=== PATIENT | male | born 1970 | race Caucasian/White ===

== ENCOUNTER 2017-06-12 18:44 | Emergency (ER) | payer OTHER ==
[2017-06-12] MEDS ORDERED: methylPREDNISolone SOD SUCCI 125 MG/2 ML VIAL IM ONE (21:13)
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
[2017-06-12 21:56] VITALS: BP 150/67; PULSE 78; RESP 18; TEMP 97.7
== END 2017-06-12 21:55 | disposition home or self-care (01) ==
LOC: EC 18:44
DX: F98.9 Unspecified behavioral and emotional disorders with onset usually occurring in childhood and adolescence (principal); R51 Headache; D86.89 Sarcoidosis of other sites; F41.9 Anxiety disorder, unspecified; F32.9 Major depressive disorder, single episode, unspecified; F17.200 Nicotine dependence, unspecified, uncomplicated; Z79.899 Other long term (current) drug therapy; Z88.8 Allergy status to other drugs, medicaments and biological substances
CPT/HCPCS: 99283; 96372; J2930

== ENCOUNTER 2018-01-20 06:48 | Emergency (ER) | payer MEDICARE, OTHER ==
[2018-01-20] MEDS ORDERED: SODIUM CHLORIDE 0.9% 500 ML IV STA (07:21)
[2018-01-20] MEDS ORDERED: SODIUM CHLORIDE 0.9% 1,000 ML IV STA (07:21)
[2018-01-20 07:39] LABS: Basophils % (A) 1 %; Eosinophils # (A) 0.2 k/uL (0-0.7); Eosinophils % (A) 2 %; HCT 47.2 % (39.0-53.0); HGB 15.6 gm/dL (13.0-17.5); Lymphocytes # (A) 2.2 k/uL (1.0-4.8); Lymphocytes % (A) 24 %; MCH 31.2 pg (25.0-35.0); MCV 94.5 fL (80.0-100.0); Mean Platelet Volume 7.6; Monocytes # (A) 0.4 k/uL (0-1.0); Monocytes % (A) 5 %; Neutrophils # (A) 6.2 k/uL (1.3-7.7); Neutrophils % (A) 68 %; Platelet Count 165 k/uL (150-450); RBC 4.99 m/uL (4.30-5.90); WBC 9.1 k/uL (3.8-10.6)
[2018-01-20 07:46] LABS: ALT 28 U/L (21-72); AST 18 U/L (17-59); Alkaline Phosphatase 85 U/L (38-126); Anion Gap 8 mmol/L; Blood Urea Nitrogen 8 mg/dL (9-20); Calcium 9.3 mg/dL (8.4-10.2); Carbon Dioxide 31 mmol/L (22-30); Chloride 103 mmol/L (98-107); Glucose 111 mg/dL (74-99); Magnesium 2.2 mg/dL (1.6-2.3); Partial Thromboplastin Time 23.6 sec (22.0-30.0); Phosphorus 3.7 mg/dL (2.5-4.5); Potassium 4.9 mmol/L (3.5-5.1); Prothrombin Time 9.7 sec (9.0-12.0); Sodium 142 mmol/L (137-145); Total Bilirubin 0.4 mg/dL (0.2-1.3); Total Protein 6.6 g/dL (6.3-8.2)
--- NOTE | 2018-01-20 08:02 | CT ---
EXAMINATION TYPE: CT brain wo con DATE OF EXAM: 01/20/2018 COMPARISON: Prior CT brain August 04, 2013. HISTORY: Lt sided numbness CT DLP: 1174 mGycm. Automated Exposure Control for Dose Reduction was Utilized. TECHNIQUE: CT scan of the head is performed without contrast. FINDINGS: There is no acute intracranial hemorrhage, mass effect, or midline shift identified. The ventricles and sulci are within normal limits in size. Mild mucosal thickening in visualized portion of maxillary sinuses is seen otherwise paranasal sinuses are clear. The globes are intact bilaterall y. IMPRESSION: No acute intracranial hemorrhage, mass effect, or midline shift is seen. No significant change from prior CT. If clinical concern for acute stroke persists further investigation with MRI st [facility] may be warranted.
[2018-01-20 08:04] LABS: Creatine Kinase 44 U/L (55-170)
[2018-01-20 08:17] LABS: Creatine Kinase MB <0.2 ng/mL (0.0-2.4); Troponin I <0.012 ng/mL (0.000-0.034)
[2018-01-20] MEDS ORDERED: DEXAMETHASONE SOD PHOSPHATE 10 MG/ML 1 ML VIAL IV STA (08:45)
[2018-01-20] MEDS ORDERED: KETOROLAC 30 MG/ML 1 ML VIAL IVP STA (09:21)
--- NOTE | 2018-01-20 09:21 | ED ---
General Adult HPI - General Chief complaint: Neuro Symptoms/Deficit Stated complaint: L side numbness Time Seen by Provider: 01/20/18 07:12 Source: patient, RN notes reviewed, old records reviewed Mode of arrival: ambulatory Limitations: no limitations - History of Present Illness Initial comments: This is a 47-year-old male the ER for evaluation. Patient presents today for evaluation regarding neurological deficit or complaint. Patient has history of neurosarcoidosis. Patient has not been on any recent steroid treatment. Patient has no head injury, patient does suffer from headaches and has current headache now. Patient states he's had some left-sided weakness as of recent, he also had possible seizure today. Patient states he was a little confused when he woke up. - Related Data Home Medications Medication Instructions Recorded Confirmed Baclofen [Lioresal] 20 mg PO QID 06/12/17 01/20/18 DULoxetine HCL [Cymbalta] 30 mg PO DAILY 06/12/17 01/20/18 DULoxetine HCL [Cymbalta] 60 mg PO HS 06/12/17 01/20/18 clonazePAM [KlonoPIN] 1 mg PO DAILY 06/12/17 01/20/18 Divalproex [Depakote] 500 mg PO BID 08/09/17 01/20/18 azaTHIOprine [Imuran] 50 mg PO BID 01/20/18 01/20/18 Allergies Allergy/AdvReac Type Severity Reaction Status Date / Time prednisone AdvReac Unknown Verified 01/20/18 08:21 Review of Systems ROS Statement: Those systems with pertinent positive or pertinent negative responses have been documented in the HPI. ROS Other: All systems not noted in ROS Statement are negative. Past Medical History Past Medical History: Hypertension, Neurologic Disorder Additional Past Medical History / Comment(s): dizziness, neuroscarcoidosis History of Any Multi-Drug Resistant Organisms: None Reported Past Surgical History: Orthopedic Surgery, Tonsillectomy Additional Past Surgical History / Comment(s): knee, shoulder, ankle, pelvic , elbow, clavicle Past Psychological History: Anxiety, Depression Smoking Status: Former smoker Past Alcohol Use History: None Reported Past Drug Use History: None Reported General Exam - General Exam Comments Initial Comments: Left leg weakness, left-sided numbness Limitations: no limitations General appearance: alert, in no apparent distress Head exam: Present: atraumatic, normocephalic, normal inspection Eye exam: Present: normal appearance, PERRL, EOMI. Absent: scleral icterus, conjunctival injection, periorbital swelling ENT exam: Present: normal exam, mucous membranes moist Neck exam: Present: normal inspection. Absent: tenderness, meningismus, lymphadenopathy Respiratory exam: Present: normal lung sounds bilaterally. Absent: respiratory distress, wheezes, rales, rhonchi, stridor Cardiovascular Exam: Present: regular rate, normal rhythm, normal heart sounds. Absent: systolic murmur, diastolic murmur, rubs, gallop, clicks GI/Abdominal exam: Present: soft, normal bowel sounds. Absent: distended, tenderness, guarding, rebound, rigid Extremities exam: Present: normal inspection, full ROM, normal capillary refill. Absent: tenderness, pedal edema, joint swelling, calf tenderness Back exam: Present: normal inspection Neurological exam: Present: alert, oriented X3, CN II-XII intact Psychiatric exam: Present: normal affect, normal mood Skin exam: Present: warm, dry, intact, normal color. Absent: rash Course Vital Signs 01/20/18 01/20/18 01/20/18 06:51 07:19 09:07 Temperature 98.2 F Pulse Rate 105 H 96 79 Respiratory 19 16 18 Rate Blood Pressure 141/78 149/83 132/84 O2 Sat by Pulse 99 97 98 Oximetry - Reevaluation(s) Reevaluation #1: 01/20/18 10:22 Patient spoke with at length, would like to be discharged after steroid infusion EKG Findings - EKG Comments: EKG Findings:: EKG shows normal sinus rhythm rate of 93, RI 146, QRS 84, QTC 417 Medical Decision Making - Medical Decision Making 47 male the ER for evaluation. Patient presents today for evaluation regards to neurological complaint, left-sided weakness. Left-sided tingling. Patient has history of neurosarcoidosis. Patient states symptoms began today when he woke up that are progressively worsened, he thinks he may have had a seizure. Taking all her medications as prescribed. Mild headache which is chronic, patient states he would like to be discharged home, given steroids here in the ER. - Lab Data Result diagrams: 01/20/18 07:07 01/20/18 07:07 Lab Results 01/20/18 01/20/18 01/20/18 Range/Units 07:07 07:07 07:07 WBC 9.1 (3.8-10.6) k/uL RBC 4.99 (4.30-5.90) m/uL Hgb 15.6 (13.0-17.5) gm/dL Hct 47.2 (39.0-53.0) % MCV 94.5 (80.0-100.0) fL MCH 31.2 (25.0-35.0) pg MCHC 33.0 (31.0-37.0) g/dL RDW 13.0 (11.5-15.5) % Plt Count 165 (150-450) k/uL Neutrophils % 68 % Lymphocytes % 24 % Monocytes % 5 % Eosinophils % 2 % Basophils % 1 % Neutrophils # 6.2 (1.3-7.7) k/uL Lymphocytes # 2.2 (1.0-4.8) k/uL Monocytes # 0.4 (0-1.0) k/uL Eosinophils # 0.2 (0-0.7) k/uL Basophils # 0.0 (0-0.2) k/uL PT (9.0-12.0) sec INR (<1.2) APTT (22.0-30.0) sec Sodium 142 (137-145) mmol/L Potassium 4.9 (3.5-5.1) mmol/L Chloride 103 (98-107) mmol/L Carbon Dioxide 31 H (22-30) mmol/L Anion Gap 8 mmol/L BUN 8 L (9-20) mg/dL Creatinine 0.89 (0.66-1.25) mg/dL Est GFR (MDRD) Af Amer >60 (>60 ml/min/1.73 sqM) Est GFR (MDRD) Non-Af >60 (>60 ml/min/1.73 sqM) Glucose 111 H (74-99) mg/dL Calcium 9.3 (8.4-10.2) mg/dL Phosphorus 3.7 (2.5-4.5) mg/dL Magnesium 2.2 (1.6-2.3) mg/dL Total Bilirubin 0.4 (0.2-1.3) mg/dL AST 18 (17-59) U/L ALT 28 (21-72) U/L Alkaline Phosphatase 85 (38-126) U/L Total Creatine Kinase 44 L (55-170) U/L CK-MB (CK-2) <0.2 (0.0-2.4) ng/mL CK-MB (CK-2) Rel Index Troponin I <0.012 (0.000-0.034) ng/mL Total Protein 6.6 (6.3-8.2) g/dL Albumin 4.0 (3.5-5.0) g/dL 01/20/18 Range/Units 07:07 WBC (3.8-10.6) k/uL RBC (4.30-5.90) m/uL Hgb (13.0-17.5) gm/dL Hct (39.0-53.0) % MCV (80.0-100.0) fL MCH (25.0-35.0) pg MCHC (31.0-37.0) g/dL RDW (11.5-15.5) % Plt Count (150-450) k/uL Neutrophils % % Lymphocytes % % Monocytes % % Eosinophils % % Basophils % % Neutrophils # (1.3-7.7) k/uL Lymphocytes # (1.0-4.8) k/uL Monocytes # (0-1.0) k/uL Eosinophils # (0-0.7) k/uL Basophils # (0-0.2) k/uL PT 9.7 (9.0-12.0) sec INR 1.0 (<1.2) APTT 23.6 (22.0-30.0) sec Sodium (137-145) mmol/L Potassium (3.5-5.1) mmol/L Chloride (98-107) mmol/L Carbon Dioxide (22-30) mmol/L Anion Gap mmol/L BUN (9-20) mg/dL Creatinine (0.66-1.25) mg/dL Est GFR (MDRD) Af Amer (>60 ml/min/1.73 sqM) Est GFR (MDRD) Non-Af (>60 ml/min/1.73 sqM) Glucose (74-99) mg/dL Calcium (8.4-10.2) mg/dL Phosphorus (2.5-4.5) mg/dL Magnesium (1.6-2.3) mg/dL Total Bilirubin (0.2-1.3) mg/dL AST (17-59) U/L ALT (21-72) U/L Alkaline Phosphatase (38-126) U/L Total Creatine Kinase (55-170) U/L CK-MB (CK-2) (0.0-2.4) ng/mL CK-MB (CK-2) Rel Index Troponin I (0.000-0.034) ng/mL Total Protein (6.3-8.2) g/dL Albumin (3.5-5.0) g/dL - Radiology Data Radiology results: report reviewed (CT brain negative for acute disease), image reviewed Disposition Clinical Impression: Weakness, Neurosarcoidosis Disposition: HOME SELF-CARE Condition: Good Instructions: Weakness (ED) Referrals: Nonstaff,Physician [Primary Care Provider] - 1-2 days
[2018-01-20] MEDS ORDERED: methylPREDNISolone SOD SUCCI 250 MG in SODIUM CHLORIDE 0.9% 100 ML IVPB STA (10:20)
[2018-01-20 11:20] VITALS: RESP 16
[2018-01-20 12:00] VITALS: BP 122/81; PULSE 83; TEMP 97.1
== END 2018-01-20 12:11 | disposition home or self-care (01) ==
LOC: EC 06:48
DX: D86.89 Sarcoidosis of other sites (principal); R53.1 Weakness; R51 Headache; I10 Essential (primary) hypertension; F32.9 Major depressive disorder, single episode, unspecified; F41.9 Anxiety disorder, unspecified; Z87.891 Personal history of nicotine dependence; Z79.899 Other long term (current) drug therapy; Z88.8 Allergy status to other drugs, medicaments and biological substances
CPT/HCPCS: 36415; 93005; 80164; 80053; 82550; 82553; 83735; 84100; 84484; 85025; 85610; 85730; 70450; 99285; 96365; 96375 ×2; 96361 ×3; J1100; J2930; J1885

== ENCOUNTER → 2021-06-20 | Outpatient (CLI) | payer MEDICARE | END | disposition home or self-care (01) | LOC: LABWHC1 09:52 | PROVIDERS: ATTEND Psychiatry & Neurology Neurology | DX: R00.0 Tachycardia, unspecified (principal) | CPT/HCPCS: 36415; 93005 ==

== ENCOUNTER → 2023-06-06 | Outpatient (CLI) | payer BC, MEDICARE ==
[2023-06-06 11:11] LABS: NT-Pro-B-Type Natriuretic Pept 524 pg/mL
[2023-06-06 16:09] LABS: Chol/HDL Ratio 6.43 Ratio; LDL Cholesterol,Calculated 125.9 mg/dL (0.0-131.0)
== END | disposition home or self-care (01) ==
LOC: LABWHC1 10:02
PROVIDERS: ATTEND Internal Medicine
DX: Z01.812 Encounter for preprocedural laboratory examination (principal); E78.5 Hyperlipidemia, unspecified
CPT/HCPCS: 36415; 80061; 83880

== ENCOUNTER 2023-11-06 11:35 | Observation (INO) | payer BC, MEDICARE ==
[2023-11-06] MEDS ORDERED: DILTIAZEM DRIP BOLUS FROM BAG 1 MG SOLN IV ONE (12:07)
[2023-11-06] MEDS ORDERED: ASPIRIN 81 MG PO STA (12:07)
--- NOTE | 2023-11-06 12:12 | ED ---
General Adult HPI - General Chief complaint: Arrhythmia/Palpitations Stated complaint: Palpitations Time Seen by Provider: 11/06/23 11:45 Source: patient, RN notes reviewed Mode of arrival: ambulatory Limitations: no limitations - History of Present Illness Initial comments: Patient is a pleasant 53-year-old male presenting to the emergency department w ith concerns for palpitations. Onset of symptoms was around 7:30 this morning. Patient had mild chest discomfort briefly last night. Patient had chest discomfort this morning with associated sweating and dyspnea. Patient has palpitations now. Chest discomfort described as tightness. Just mild at this time. Patient does have previous cardiac stenting however unclear if he had previous myocardial infarction. No history of dysrhythmia. - Related Data Home Medications Medication Instructions Recorded Confirmed clonazePAM [KlonoPIN] 1 mg PO Q12H 06/12/17 06/08/23 Divalproex [Depakote] 500 mg PO BID 08/09/17 06/08/23 azaTHIOprine [Imuran] 50 mg PO BID 05/11/23 06/08/23 Aspirin 81 mg PO DAILY 06/06/23 06/08/23 Previous Rx's Medication Instructions Recorded Atorvastatin [Lipitor] 40 mg PO HS #90 tab 06/10/23 Losartan [Cozaar] 50 mg PO DAILY #90 tab 06/10/23 Metoprolol Succinate (ER) [Toprol 50 mg PO DAILY #90 tab 06/10/23 XL] Ticagrelor [Brilinta] 90 mg PO BID #180 tab 06/10/23 Allergies Allergy/AdvReac Type Severity Reaction Status Date / Time prednisone AdvReac makes him Verified 11/06/23 11:40 irritable Review of Systems ROS Statement: Those systems with pertinent positive or pertinent negative responses have been documented in the HPI. ROS Other: All systems not noted in ROS Statement are negative. Constitutional: Denies: fever Eyes: Denies: eye pain ENT: Denies: ear pain Respiratory: Reports: as per HPI. Denies: cough Cardiovascular: Reports: as per HPI, chest pain, palpitations Endocrine: Denies: fatigue Gastrointestinal: Denies: abdominal pain Genitourinary: Denies: dysuria Past Medical History Past Medical History: Chest Pain / Angina, Eye Disorder, GERD/Reflux, Hyperlipidemia, Hypertension, Neurologic Disorder, Seizure Disorder Additional Past Medical History / Comment(s): dizziness, neurosarcoidosis, LAST MAJOR SEIZURE 4-5 YEARS- THINKS HE MIGHT HAVE SEIZURES WHEN HE IS SLEEPING-NOT SURE, small seizures, muscle spasticity, fluid retention left ankle, heartburn "goes into arms", chest tightness, some SOB w/exertion recently History of Any Multi-Drug Resistant Organisms: None Reported Past Surgical History: Orthopedic Surgery, Tonsillectomy Additional Past Surgical History / Comment(s): BILAT knee, BILAT shoulder, BILAT ankle, pelvic , LT elbow,LT clavicle, BILAT HAND SX, BLAT EYE SX , LASER SURGERY FOR BILAT DETACHED RETINAS Past Anesthesia/Blood Transfusion Reactions: No Reported Reaction Past Psychological History: Anxiety, Depression Smoking Status: Former smoker Past Alcohol Use History: None Reported Past Drug Use History: None Reported - Past Family History Mother History Unknown: Yes Family Medical History: No Reported History Additional Family Medical History / Comment(s): ADOPTED-FAMILY HX UNKNOWN Father Additional Family Medical History / Comment(s): ADOPTED-FAMILY HX UNKNOWN General Exam Limitations: no limitations General appearance: alert Eye exam: Present: normal appearance Neck exam: Present: normal inspection Respiratory exam: Present: normal lung sounds bilaterally Cardiovascular Exam: Present: tachycardia, irregular rhythm, normal heart sounds Expanded Peripheral pulses: 2+: Radial (R), Radial (L), Posterior Tibialis (R), Posterior Tibialis (L) GI/Abdominal exam: Present: soft. Absent: tenderness Extremities exam: Present: normal inspection. Absent: pedal edema, calf tenderness Neurological exam: Present: alert Psychiatric exam: Present: normal affect, normal mood Skin exam: Present: normal color Course Vital Signs 11/06/23 11/06/23 11/06/23 11:38 12:00 12:12 Temperature 98.4 F Pulse Rate 71 126 H Pulse Rate [ 152 H Computer Typesetter Keyliner ] Respiratory 22 18 Rate Blood Pressure 137/91 132/109 O2 Sat by Pulse 100 97 Oximetry 11/06/23 11/06/23 12:30 13:13 Temperature Pulse Rate 125 H 120 H Pulse Rate [ Computer Typesetter Keyliner ] Respiratory 18 18 Rate Blood Pressure 122/81 131/70 O2 Sat by Pulse 95 98 Oximetry EKG Findings - EKG Results: EKG: interpreted by ERMD (Lateral ST depression.), normal axis, normal QRS EKG shows: tachycardia, atrial fibrillation Medical Decision Making - Medical Decision Making Was pt. sent in by a medical professional or institution (TOMMIE Campbell, POLICE DISTRICT SWITCHBOARD OPERATOR, urgent care, hospital, or group home...) When possible be specific @ -[No] Did you speak to anyone other than the patient for history (EMS, parent, family, police, friend...)? What history was obtained from this source @ - is present and helps provide history including patient having similar symptoms previously and history of anxiety. Did you review nursing and triage notes (agree or disagree)? Why? @ -[I reviewed and agree with nursing and triage notes] Were old charts reviewed (outside hosp., previous admission, EMS record, old EKG, old radiological studies, urgent care reports/EKG's, group home records)? Report findings @ -[No old charts were reviewed] Differential Diagnosis (chest pain, altered mental status, abdominal pain women, abdominal pain men, vaginal bleeding, weakness, fever, dyspnea, syncope, headache, dizziness, GI bleed, back pain, seizure, CVA, palpatations, mental health, musculoskeletal)? @ -Differential Palpitations Ventricular arrhythmias, atrial arrhythmias, myocardial infarction, anemia, thyrotoxicosis, electrolyte imbalance, hypokalemia, pulmonary embolism, pulmonary disease, drugs, alcohol, anxiety, stress.... This is not meant to be an all-inclusive list. EKG interpreted by me (3pts min.). @ -[As above] X-rays interpreted by me (1pt min.). @ -Chest x-ray shows no acute process CT interpreted by me (1pt min.). @ -[None done] U/S interpreted by me (1pt. min.). @ -[None done] What testing was considered but not performed or refused? (CT, X-rays, U/S, labs)? Why? @ -[None] What meds were considered but not given or refused? Why? @ -[None] Did you discuss the management of the patient with other professionals (professionals i.e. TOMMIE Campbell, POLICE DISTRICT SWITCHBOARD OPERATOR, lab, RT, psych nurse, health care social worker, commissioner conservation of resources, teacher, benefits officer, casework supervisor)? Give summary @ -Case discussed with Dr. Pichardo, who will admit For Dr. Fullert Was smoking cessation discussed for >3mins.? @ -[No] Was critical care preformed (if so, how long)? @ -31 minutes of critical care time is provided Were there social determinants of health that impacted care today? How? (Homeles sness, low income, unemployed, alcoholism, drug addiction, transportation, low edu. Level, literacy, decrease access to med. care, [facility], rehab)? @ -[No] Was there de-escalation of care discussed even if they declined (Discuss DNR or withdrawal of care, Hospice)? DNR status @ -[No] What co-morbidities impacted this encounter? (DM, HTN, Smoking, COPD, CAD, Cancer, CVA, ARF, Chemo, Hep., AIDS, mental health diagnosis, sleep apnea, morbid obesity)? @ -[None] Was patient admitted / discharged? Hospital course, mention meds given and route, prescriptions, significant lab abnormalities, going to OR and other pertinent info. @ -Patient reevaluated. Heart rate has improved between 100-120 . Patient is feeling better. Patient and family updated on results and plan. Patient will be admitted with cardiac consult. Admission orders written. Undiagnosed new problem with uncertain prognosis? @ -[No] Drug Therapy requiring intensive monitoring for toxicity (Heparin, Nitro, Insulin, Cardizem)? @ -Patient will need monitoring on his Cardizem drip. Patient will be started on heparin drip. Were any procedures done? @ -[No] Diagnosis/symptom? @ -A. fib with RVR, new onset Acute, or Chronic, or Acute on Chronic? @ -Acute Uncomplicated (without systemic symptoms) or Complicated (systemic symptoms)? @ -[default] Side effects of treatment? @ -[No] Exacerbation, Progression, or Severe Exacerbation? @ -[No] Poses a threat to life or bodily function? How? (Chest pain, USA, CA, pneumonia, PE, COPD, DKA, ARF, appy, cholecystitis, CVA, Diverticulitis, Homicidal, Suicidal, threat to staff... and all critical care pts) @ -[No] - Lab Data Result diagrams: 11/06/23 12:13 11/06/23 12:13 Lab Results 11/06/23 11/06/23 11/06/23 Range/Units 12: 12: 12: WBC 6.8 (3.8-10.6) k/uL RBC 4.89 (4.30-5.90) m/uL Hgb 16.1 (13.0-17.5) gm/dL Hct 45.9 (39.0-53.0) % MCV 94.0 (80.0-100.0) fL MCH 32.9 (25.0-35.0) pg MCHC 35.0 (31.0-37.0) g/dL RDW 12.5 (11.5-15.5) % Plt Count 173 (150-450) k/uL MPV 7.7 Neutrophils % 71 % Lymphocytes % 19 % Monocytes % 6 % Eosinophils % 1 % Basophils % 1 % Neutrophils # 4.8 (1.3-7.7) k/uL Lymphocytes # 1.3 (1.0-4.8) k/uL Monocytes # 0.4 (0-1.0) k/uL Eosinophils # 0.0 (0-0.7) k/uL Basophils # 0.0 (0-0.2) k/uL PT 10.6 (10.0-12.5) sec INR 1.0 (<1.2) APTT 24.0 (22.0-30.0) sec Sodium 136 L (137-145) mmol/L Potassium 4.2 (3.5-5.1) mmol/L Chloride 107 (98-107) mmol/L Carbon Dioxide 16 L (22-30) mmol/L Anion Gap 13 mmol/L BUN 13 (9-20) mg/dL Creatinine 0.69 (0.66-1.25) mg/dL Est GFR (CKD-EPI)AfAm >90 (>60 ml/min/1.73 sqM) Est GFR (CKD-EPI)NonAf >90 (>60 ml/min/1.73 sqM) Glucose 190 H (74-99) mg/dL Calcium 9.8 (8.4-10.2) mg/dL Magnesium 2.0 (1.6-2.3) mg/dL Total Bilirubin 0.4 (0.2-1.3) mg/dL AST 52 (17-59) U/L ALT 71 H (4-49) U/L Alkaline Phosphatase 102 (38-126) U/L Troponin I (0.000-0.034) ng/mL NT-Pro-B Natriuret Pep 109 pg/mL Total Protein 7.5 (6.3-8.2) g/dL Albumin 4.4 (3.5-5.0) g/dL TSH 1.610 (0.465-4.680) mIU/L 11/06/23 Range/Units 12:13 WBC (3.8-10.6) k/uL RBC (4.30-5.90) m/uL Hgb (13.0-17.5) gm/dL Hct (39.0-53.0) % MCV (80.0-100.0) fL MCH (25.0-35.0) pg MCHC (31.0-37.0) g/dL RDW (11.5-15.5) % Plt Count (150-450) k/uL MPV Neutrophils % % Lymphocytes % % Monocytes % % Eosinophils % % Basophils % % Neutrophils # (1.3-7.7) k/uL Lymphocytes # (1.0-4.8) k/uL Monocytes # (0-1.0) k/uL Eosinophils # (0-0.7) k/uL Basophils # (0-0.2) k/uL PT (10.0-12.5) sec INR (<1.2) APTT (22.0-30.0) sec Sodium (137-145) mmol/L Potassium (3.5-5.1) mmol/L Chloride (98-107) mmol/L Carbon Dioxide (22-30) mmol/L Anion Gap mmol/L BUN (9-20) mg/dL Creatinine (0.66-1.25) mg/dL Est GFR (CKD-EPI)AfAm (>60 ml/min/1.73 sqM) Est GFR (CKD-EPI)NonAf (>60 ml/min/1.73 sqM) Glucose (74-99) mg/dL Calcium (8.4-10.2) mg/dL Magnesium (1.6-2.3) mg/dL Total Bilirubin (0.2-1.3) mg/dL AST (17-59) U/L ALT (4-49) U/L Alkaline Phosphatase (38-126) U/L Troponin I 0.078 H* (0.000-0.034) ng/mL NT-Pro-B Natriuret Pep pg/mL Total Protein (6.3-8.2) g/dL Albumin (3.5-5.0) g/dL TSH (0.465-4.680) mIU/L Disposition Clinical Impression: Atrial fibrillation, Tachycardia Disposition: ADMITTED IP TO THIS HOSP Is patient prescribed a controlled substance at d/c from ED?: No Referrals: None,Stated [REFERRING] - 1-2 days Time of Disposition: 14:05
[2023-11-06 12:27] LABS: Basophils % (A) 1 %; Eosinophils % (A) 1 %; HCT 45.9 % (39.0-53.0); HGB 16.1 gm/dL (13.0-17.5); Lymphocytes # (A) 1.3 k/uL (1.0-4.8); Lymphocytes % (A) 19 %; MCH 32.9 pg (25.0-35.0); Mean Platelet Volume 7.7; Monocytes # (A) 0.4 k/uL (0-1.0); Monocytes % (A) 6 %; Neutrophils # (A) 4.8 k/uL (1.3-7.7); Neutrophils % (A) 71 %; Platelet Count 173 k/uL (150-450); RBC 4.89 m/uL (4.30-5.90); RDW 12.5 % (11.5-15.5); WBC 6.8 k/uL (3.8-10.6)
[2023-11-06] MEDS: DILTIAZEM 125 MG in SODIUM CHLORIDE 0.9% 100 ML IV SCH (12:30)
[2023-11-06 12:37] LABS: ALT 71 U/L (4-49); AST 52 U/L (17-59); African American GFR (CKD) >90 (>60 ml/min/1.73 sqM); Albumin 4.4 g/dL (3.5-5.0); Alkaline Phosphatase 102 U/L (38-126); Anion Gap 13 mmol/L; Blood Urea Nitrogen 13 mg/dL (9-20); Calcium 9.8 mg/dL (8.4-10.2); Carbon Dioxide 16 mmol/L (22-30); Chloride 107 mmol/L (98-107); Glucose 190 mg/dL (74-99); Non-African American GFR(CKD) >90 (>60 ml/min/1.73 sqM); Potassium 4.2 mmol/L (3.5-5.1); Prothrombin Time 10.6 sec (10.0-12.5); Sodium 136 mmol/L (137-145); Total Bilirubin 0.4 mg/dL (0.2-1.3); Total Protein 7.5 g/dL (6.3-8.2)
[2023-11-06 12:45] LABS: NT-Pro-B-Type Natriuretic Pept 109 pg/mL
--- NOTE | 2023-11-06 13:01 | XR ---
EXAMINATION TYPE: XR chest 1V portable DATE OF EXAM: 11/06/2023 12:53 PM CLINICAL INDICATION:Male, 53 years old with history of dysrhythmia; COMPARISON: Chest radiographs from 11/07/2021 TECHNIQUE: XR chest 1V portable Frontal view of the chest. FINDINGS: Lungs/Pleura: There is no evidence of pleural effusion, focal consolidation, or pneumothorax. Pulmonary vascularity: Unremarkable. Heart/mediastinum: Cardiomediastinal silhouette is unremarkable. Musculoskeletal: No acute osseous pathology. IMPRESSION: No acute cardiopulmonary disease/process.
[2023-11-06] MEDS ORDERED: HEPARIN SODIUM 1,000 UN/ML (10ML VL) IV ONE (14:06)
--- NOTE | 2023-11-06 14:13 | P.HPIM ---
History of Present Illness H&P Date: 11/06/23 History of present illness; patient is a 53-year-old gentleman with past medical history significant for coronary artery disease status post PCI of LAD, hypertension, hyperlipidemia, GERD, tachycardia, anxiety, depression, history of seizure disorder,neurosarcoidosis who presented to the hospital because of chest pain and palpitation. Patient was all right yesterday night when he noticed while watching TV that he had an episode of left-sided chest pain, during that episode patient also felt that his heart was fluttering. Patient initially didn't pay much notice to that and went to bed. Patient woke up this morning at around 7:30 started experiencing left-sided chest pain, at that time he noticed that his heart was beating very fast and was fluttering. Patient in that episode became diaphoretic and short of breath. Chest pain was sharp, nonradiating, no aggravating or relieving factors with this chest pain. Patient took his vitals and found his heart rate to be in 150s, patient became concerned and decided to come to the ER immediately Initial lab work done in the ER showed WBC 6.8, hemoglobin 16.1, platelet count 173, sodium 136, potassium 4.2, BUNs 13, creatinine 0.69, glucose 190 troponin 0.078 EKG done in the ER showed heart rate of 146, no P waves seen, irregular in rhythm no ST segment elevation or depression seen, no T-wave inversions seen. Chest x-ray done in the ER showed no acute cardiopulmonary process Patient was started on Cardizem drip, was admitted to medicine service REVIEW OF SYSTEMS: CONSTITUTIONAL: No fever, no malaise, no fatigue. HEENT: No recent visual problems or hearing problems. Denied any sore throat. CARDIOVASCULAR: As mentioned in HPI PULMONARY: As mentioned in HPI GASTROINTESTINAL: No diarrhea, no nausea, no vomiting, no abdominal pain. NEUROLOGICAL: No headaches, no weakness, no numbness. HEMATOLOGICAL: Denies any bleeding or petechiae. GENITOURINARY: Denies any burning micturition, frequency, or urgency. MUSCULOSKELETAL/RHEUMATOLOGICAL: Denies any joint pain, swelling, or any muscle pain. ENDOCRINE: Denies any polyuria or polydipsia. The rest of the 14-point review of systems is negative. PHYSICAL EXAMINATION: GENERAL: The patient is alert and oriented x3, not in any acute distress. Well developed, well nourished. HEENT: Pupils are round and equally reacting to light. EOMI. No scleral icterus. No conjunctival pallor. Normocephalic, atraumatic. No pharyngeal erythema. No thyromegaly. CARDIOVASCULAR: S1 and S2 present. No murmurs, rubs, or gallops. Tachycardia, irregular in rate and rhythm PULMONARY: Chest is clear to auscultation, no wheezing or crackles. ABDOMEN: Soft, nontender, nondistended, normoactive bowel sounds. No palpable organomegaly. MUSCULOSKELETAL: No joint swelling or deformity. EXTREMITIES: No cyanosis, clubbing, or pedal edema. NEUROLOGICAL: Gross neurological examination did not reveal any focal deficits. SKIN: No rashes. Assessment and plan A. fib with RVR Elevated troponin History of CAD as proximal LAD 95% stenosis S/p PCI proximal LAD, known 100% mid RCA stenosis Hypertension Hyperlipidemia Anxiety Depression History of neurosarcoidosis Monitor vital signs Monitor CBC Monitor CMP Continue telemetry monitoring Trend troponin. Ordered lipid panel Ordered echo Continue Cardizem drip and heparin Resume home meds Consult cardiology Labs and medication were reviewed.. Continue same treatment. Continue with symptomatic treatment. Resume home medication. Monitor labs and vitals. DVT and GI prophylaxis. Further recommendations as per clinical course of the patient Dictation was produced using [employer] dictation software. please excuse any grammatical, word or spelling errors. Past Medical History Past Medical History: Chest Pain / Angina, Eye Disorder, GERD/Reflux, Hyperlipidemia, Hypertension, Neurologic Disorder, Seizure Disorder Additional Past Medical History / Comment(s): dizziness, neurosarcoidosis, LAST MAJOR SEIZURE 4-5 YEARS- THINKS HE MIGHT HAVE SEIZURES WHEN HE IS SLEEPING-NOT SURE, small seizures, muscle spasticity, fluid retention left ankle, heartburn "goes into arms", chest tightness, some SOB w/exertion recently History of Any Multi-Drug Resistant Organisms: None Reported Past Surgical History: Orthopedic Surgery, Tonsillectomy Additional Past Surgical History / Comment(s): BILAT knee, BILAT shoulder, BILAT ankle, pelvic , LT elbow,LT clavicle, BILAT HAND SX, BLAT EYE SX INFANT, LAS ER SURGERY FOR BILAT DETACHED RETINAS Past Anesthesia/Blood Transfusion Reactions: No Reported Reaction Past Psychological History: Anxiety, Depression Smoking Status: Former smoker Past Alcohol Use History: None Reported Past Drug Use History: None Reported - Past Family History Mother History Unknown: Yes Family Medical History: No Reported History Additional Family Medical History / Comment(s): ADOPTED-FAMILY HX UNKNOWN Father Additional Family Medical History / Comment(s): ADOPTED-FAMILY HX UNKNOWN Medications and Allergies Home Medications Medication Instructions Recorded Confirmed Type clonazePAM [KlonoPIN] 1 mg PO Q12H 06/12/17 06/08/23 History Divalproex [Depakote] 500 mg PO BID 08/09/17 06/08/23 History azaTHIOprine [Imuran] 50 mg PO BID 05/11/23 06/08/23 History Aspirin 81 mg PO DAILY 06/06/23 06/08/23 History Atorvastatin [Lipitor] 40 mg PO HS #90 tab 06/10/23 Rx Losartan [Cozaar] 50 mg PO DAILY #90 tab 06/10/23 Rx Metoprolol Succinate (ER) [Toprol 50 mg PO DAILY #90 tab 06/10/23 Rx XL] Ticagrelor [Brilinta] 90 mg PO BID #180 tab 06/10/23 Rx Allergies Allergy/AdvReac Type Severity Reaction Status Date / Time prednisone AdvReac makes him Verified 11/06/23 11:40 irritable Physical Exam Vitals: Vital Signs Temp Pulse Pulse Resp BP Pulse Ox 11/06/23 13:13 120 H 18 131/70 98 11/06/23 12:30 125 H 18 122/81 95 11/06/23 12:12 126 H 18 132/109 97 11/06/23 12:00 152 H 11/06/23 11:38 98.4 F 71 22 137/91 100 Intake and Output 11/05/23 11/06/23 11/06/23 22:59 06:59 14:59 Other: Weight 92.986 kg Results CBC & Chem 7: 11/06/23 12:13 11/06/23 12:13 Labs: Abnormal Lab Results - Last 24 Hours (Table) 11/06/23 11/06/23 Range/Units 12:13 12:13 Sodium 136 L (137-145) mmol/L Carbon Dioxide 16 L (22-30) mmol/L Glucose 190 H (74-99) mg/dL ALT 71 H (4-49) U/L Troponin I 0.078 H* (0.000-0.034) ng/mL
[2023-11-06] MEDS ORDERED: HEPARIN SOD,PORK IN 0.45% NACL 25,000 UNIT in 0.45% NACL 1 250ML.BAG IV SCH (14:15)
[2023-11-06] MEDS: clonazePAM 1 MG TAB PO SCH (19:51)
[2023-11-06] MEDS: DIVALPROEX 500 MG TABLET.DR PO SCH (19:51)
[2023-11-06] MEDS ORDERED: ATORVASTATIN 40 MG TAB PO SCH (21:00)
[2023-11-07 03:26] LABS: Basophils # (A) 0.1 k/uL (0-0.2); Basophils % (A) 1 %; Eosinophils # (A) 0.1 k/uL (0-0.7); Eosinophils % (A) 1 %; HCT 42.6 % (39.0-53.0); HGB 14.8 gm/dL (13.0-17.5); Lymphocytes # (A) 2.3 k/uL (1.0-4.8); Lymphocytes % (A) 34 %; MCH 32.9 pg (25.0-35.0); MCHC 34.8 g/dL (31.0-37.0); MCV 94.5 fL (80.0-100.0); Mean Platelet Volume 8.7; Monocytes # (A) 0.5 k/uL (0-1.0); Monocytes % (A) 7 %; Neutrophils # (A) 3.6 k/uL (1.3-7.7); Neutrophils % (A) 54 %; Platelet Count 168 k/uL (150-450); RBC 4.51 m/uL (4.30-5.90); WBC 6.6 k/uL (3.8-10.6)
[2023-11-07 04:24] LABS: ALT 58 U/L (4-49); AST 33 U/L (17-59); African American GFR (CKD) >90 (>60 ml/min/1.73 sqM); Albumin 3.9 g/dL (3.5-5.0); Alkaline Phosphatase 88 U/L (38-126); Anion Gap 13 mmol/L; Blood Urea Nitrogen 14 mg/dL (9-20); Carbon Dioxide 20 mmol/L (22-30); Chloride 108 mmol/L (98-107); Glucose 114 mg/dL (74-99); Non-African American GFR(CKD) >90 (>60 ml/min/1.73 sqM); Potassium 4.3 mmol/L (3.5-5.1); Sodium 141 mmol/L (137-145); Total Bilirubin 0.3 mg/dL (0.2-1.3); Total Protein 6.6 g/dL (6.3-8.2)
[2023-11-07] MEDS: DILTIAZEM 125 MG in SODIUM CHLORIDE 0.9% 100 ML IV SCH (05:41)
[2023-11-07] MEDS: DIVALPROEX 500 MG TABLET.DR PO SCH (08:07)
[2023-11-07] MEDS: clonazePAM 1 MG TAB PO SCH (08:07)
[2023-11-07] MEDS ORDERED: METOPROLOL SUCCINATE (ER) 50 MG TAB.ER.24H PO SCH (09:00)
[2023-11-07] MEDS ORDERED: ASPIRIN 325 MG TAB PO SCH (09:00)
[2023-11-07] MEDS ORDERED: LOSARTAN 50 MG TAB PO SCH (09:00)
[2023-11-07 09:33] LABS: Chol/HDL Ratio 4.22 Ratio
[2023-11-07] MEDS ORDERED: CLOPIDOGREL 75 MG TAB PO STA (09:38)
[2023-11-07 09:45] VITALS: RESP 16; TEMP 97.5
[2023-11-07] MEDS ORDERED: AMIODARONE 200 MG TAB PO SCH (10:00)
[2023-11-07] MEDS ORDERED: APIXABAN 5 MG TAB PO SCH (10:30)
--- NOTE | 2023-11-07 11:11 | CA ---
Transthoracic Echo Report Name: Thang Arthur Age: 53 Gender: M : 1970 Exam Date: 11/07/2023 08:47 Exam Location: [facility] Ht (in): 76 Wt (lb): 205 Ordering Physician: Aleks Pichardo MD Attending/Referring Phys: Watch Inspector Joanie Butcher RDCS Procedure CPT: Indications: Chest Pain Cardiac Hx: Technical Quality: Fair Contrast 1: Total Dose (mL): Contrast 2: Total Dose (mL): MEASUREMENTS (Male / Female) Normal Values 2D ECHO LV Diastolic Diameter PLAX 5.0 cm 4.2 - 5.9 / 3.9 - 5.3 cm LV Systolic Diameter PLAX 3.6 cm IVS Diastolic Thickness 1.4 cm 0.6 - 1.0 / 0.6 - 0.9 cm LVPW Diastolic Thickness 1.2 cm 0.6 - 1.0 / 0.6 - 0.9 cm LV Relative Wall Thickness 0.5 RV Internal Dim ED PLAX 3.2 cm LA Systolic Diameter LX 3.6 cm 3.0 - 4.0 / 2.7 - 3.8 cm LV Diastolic Volume MOD 4C 109.5 cm??? LV Systolic Volume MOD 4C 54.8 cm??? LV Ejection Fraction MOD 4C 50.0 % LV Cardiac Index MOD 4C 1467.1 cm???/min???m??? LV Diastolic Length 4C 8.6 cm LV Systolic Length 4C 7.1 cm LV Diastolic Volume MOD 2C 101.1 cm??? LV Systolic Volume MOD 2C 48.7 cm??? LV Ejection Fraction MOD 2C 51.8 % LV Cardiac Index MOD 2C 1406.3 cm???/min???m??? LV Diastolic Length 2C 8.6 cm LV Systolic Length 2C 7.3 cm LA Volume 47.9 cm??? 18 - 58 / 22 - 52 cm??? LA Volume Index 21.4 cm???/m??? 16 - 28 cm???/m??? M-MODE Aortic Root Diameter MM 3.5 cm MV E Point Septal Separation 2.0 cm AV Cusp Separation MM 2.1 cm DOPPLER AV Peak Velocity 131.6 cm/s AV Peak Gradient 6.9 mmHg MV Area PHT 2.7 cm??? Mitral E Point Velocity 69.1 cm/s Mitral A Point Velocity 57.2 cm/s Mitral E to A Ratio 1.2 MV Deceleration Time 277.8 ms MV E' Velocity 7.9 cm/s Mitral E to MV E' Ratio 8.7 TR Peak Velocity 251.3 cm/s TR Peak Gradient 25.3 mmHg Right Ventricular Systolic Press 30.3 mmHg FINDINGS Left Ventricle Left ventricular ejection fraction is estimated at 50-55 %. Left ventricular cavity size normal. Mildly increased septal wall thickness. Right Ventricle Normal right ventricular size. Right ventricular systolic pressure within normal limits. Right Atrium Normal right atrial size. Left Atrium Normal left atrial size. Mitral Valve Structurally normal mitral valve. Mitral annular calcification. No mitral stenosis,or prolapse.mild mitral regurgitation. Aortic Valve Trileaflet aortic valve. No aortic valve stenosis or regurgitation. Tricuspid Valve Structurally normal tricuspid valve. Mild tricuspid regurgitation. Pulmonic Valve Structurally normal pulmonic valve. No pulmonic regurgitation. Pericardium No pericardial effusion. Aorta Normal size aortic root and proximal ascending aorta. CONCLUSIONS 1. Left ventricular systolic function borderline normal 2. Mild mitral and tricuspid regurgitation Previewed by: Dr. Dolly Hoover MD (Electronically Signed) Final Date: 07 November 2023 11:10
[2023-11-07 11:54] VITALS: BP 114/64; PULSE 66
--- NOTE | 2023-11-07 21:35 | CONS ---
CONSULTATION underwent stenting of LAD and diagonal that was performed in May. Ejection fraction is in the 40% range with inferior wall hypokinesia. The patient has been under somewhat of a stress lately and that seems to also have been the precipitating factor. He does drink alcohol every day. He had 2 beers yesterday, but he thinks that is not unusual for him. He is in sinus rhythm, resting comfortably at the time of my evaluation. PAST MEDICAL HISTORY: 1. CAD with multivessel PCI. 2. Hypertension. 3. Hyperlipidemia. 4. Recently quit tobacco use. 5. Alcohol abuse on a regular basis. MEDICATIONS AT HOME: Include; 1. Brilinta 90 mg b.i.d. 2. Aspirin 81 mg daily. 3. Depakote 500 mg b.i.d. for seizure disorder. 4. Imuran 50 mg daily. 5. Lipitor 40 mg daily. 6. Losartan 50 mg daily. 7. Metoprolol succinate 50 mg daily. PHYSICAL EXAMINATION: VITAL SIGNS: Blood pressure is 118/70, pulse rate is 60, sinus. HEENT: Unremarkable. Fundus was not examined by me. NECK: Supple. No JVD. I do not hear a carotid bruit. HEART: Reveals S1, S2 heard normally. No significant murmurs. LUNGS: Clear. ABDOMEN: Soft, nontender. EXTREMITIES: Lower extremities reveal normal pulses. No edema. CENTRAL NERVOUS SYSTEM: Normal. IMAGING: EKG revealed atrial fib, rapid ventricular rate. Repeat EKG revealed sinus mechanism with minor nonspecific ST abnormality. LABORATORY DATA: Reveals a troponin elevation of 0.3 and 0.2, which is probably related to atrial fibrillation. His LDL cholesterol is 50. Renal function is normal. Liver functions are also within normal limits and TSH is also normal. IMPRESSION: 1. Paroxysmal symptomatic atrial fibrillation. 2. Coronary artery disease with multivessel percutaneous coronary intervention. 3. Hypertension. 4. Hyperlipidemia. 5. History of tobacco abuse in the past. 6. Alcoholism. RECOMMENDATIONS: I am recommending that we switch him from Brilinta to Plavix. I will give [address] dose [address] him on Plavix 75 mg daily. No aspirin. He will be on Eliquis 5 mg b.i.d. I will also give him amiodarone a short-term course 400 mg b.i.d. for 1 week, then 200 mg b.i.d., and he will see Dr. Abdul in the office. His baseline TSH and liver function tests are normal. I am recommending that he should have a short term course of amiodarone and also have some surveillance event monitor performed as an outpatient. I discussed my thoughts in detail with the patient and . He can be discharged later on today. Thank you very much for the consult. EMMY / CHARANJIT: [id number] /
[2023-11-08] MEDS ORDERED: CLOPIDOGREL 75 MG TAB PO SCH (09:00)
== END 2023-11-07 13:40 | disposition home or self-care (01) ==
LOC: EC 11:35 → 3SCARD 14:07
PROVIDERS: ADMIT Internal Medicine; ATTEND Internal Medicine
DX: I48.0 Paroxysmal atrial fibrillation (principal); I25.10 Atherosclerotic heart disease of native coronary artery without angina pectoris; F10.10 Alcohol abuse, uncomplicated; R79.89 Other specified abnormal findings of blood chemistry; K21.9 Gastro-esophageal reflux disease without esophagitis; E78.5 Hyperlipidemia, unspecified; I10 Essential (primary) hypertension; F41.9 Anxiety disorder, unspecified; F32.A Depression, unspecified; D86.89 Sarcoidosis of other sites; Z87.891 Personal history of nicotine dependence; Z95.5 Presence of coronary angioplasty implant and graft; Z79.82 Long term (current) use of aspirin; Z79.624 Long term (current) use of inhibitors of nucleotide synthesis; Z79.02 Long term (current) use of antithrombotics/antiplatelets; Z79.899 Other long term (current) drug therapy
CPT/HCPCS: 96374; 96375; 99285; 36415; 93005; 93306; 83880; 80061; 80053 ×2; 83735; 84443; 84484 ×2; 85025 ×2; 85610; 85730 ×2; 83036; 71045; G0378 ×2; J1644 ×2

== ENCOUNTER 2023-12-03 23:05 | Emergency (ER) | payer MEDICARE, BC ==
[2023-12-03 23:20] VITALS: BP 182/90; PULSE 71; RESP 18; TEMP 97.9
[2023-12-03 23:39] LABS: Basophils # (A) 0.1 k/uL (0-0.2); Basophils % (A) 1 %; Eosinophils # (A) 0.1 k/uL (0-0.7); Eosinophils % (A) 1 %; HGB 15.4 gm/dL (13.0-17.5); Lymphocytes % (A) 32 %; MCH 32.7 pg (25.0-35.0); MCHC 35.1 g/dL (31.0-37.0); MCV 93.2 fL (80.0-100.0); Mean Platelet Volume 7.5; Monocytes # (A) 0.3 k/uL (0-1.0); Monocytes % (A) 5 %; Neutrophils # (A) 3.6 k/uL (1.3-7.7); Neutrophils % (A) 58 %; Platelet Count 176 k/uL (150-450); RBC 4.72 m/uL (4.30-5.90); RDW 12.5 % (11.5-15.5); WBC 6.3 k/uL (3.8-10.6)
--- NOTE | 2023-12-03 23:46 | XR ---
EXAMINATION TYPE: XR chest 2V DATE OF EXAM: 12/03/2023 COMPARISON: Chest x-ray November 06, 2023 HISTORY: Chest pain TECHNIQUE: Frontal and lateral views of the chest are obtained. FINDINGS: There is no suspicious new focal air space opacity, pleural effusion, or pneumothorax seen . The cardiac silhouette size is stable and within normal limits. The osseous structures are intac t. IMPRESSION: No acute process. No significant change from prior.
[2023-12-03 23:52] LABS: ALT 42 U/L (4-49); AST 28 U/L (17-59); African American GFR (CKD) >90 (>60 ml/min/1.73 sqM); Albumin 5.1 g/dL (3.5-5.0); Alkaline Phosphatase 88 U/L (38-126); Anion Gap 15 mmol/L; Blood Urea Nitrogen 13 mg/dL (9-20); Calcium 9.5 mg/dL (8.4-10.2); Carbon Dioxide 24 mmol/L (22-30); Chloride 97 mmol/L (98-107); Glucose 139 mg/dL (74-99); Magnesium 2.1 mg/dL (1.6-2.3); Non-African American GFR(CKD) >90 (>60 ml/min/1.73 sqM); Potassium 4.9 mmol/L (3.5-5.1); Sodium 136 mmol/L (137-145); Total Bilirubin 0.5 mg/dL (0.2-1.3); Total Protein 8.4 g/dL (6.3-8.2)
[2023-12-04] LABS: Partial Thromboplastin Time 26.7 sec (22.0-30.0)
== END 2023-12-04 00:53 | disposition left against medical advice (07) ==
LOC: EC 23:05
DX: Z53.21 Procedure and treatment not carried out due to patient leaving prior to being seen by health care provider (principal); R07.9 Chest pain, unspecified
CPT/HCPCS: 36415; 71046; 80053; 83735; 84484; 85025; 85610; 85730; 93005; 99499

== ENCOUNTER 2023-12-11 17:02 | Emergency (ER) | payer MEDICARE, BC ==
--- NOTE | 2023-12-11 17:36 | ED ---
Chest Pain HPI - General Chief Complaint: Chest Pain Stated Complaint: High Blood pressure Time Seen by Provider: 12/11/23 17:06 Source: patient, EMS Mode of arrival: EMS Limitations: no limitations - History of Present Illness Initial Comments: This patient is a 53-year-old man who presents with concerns about his blood pressure. The patient states that he was not feeling well. He states that his face was flushed, he felt a tightness across his chest, and the symptoms usually have heralded either his atrial fibrillation or his blood pressure acting up. The patient checked his blood pressure and it was elevated and then after repeat checks it had gone higher so he comes here to have evaluation. There were no associated symptoms. The patient does note that he has had problems with control of his blood pressure, his beta elio had been decreased after leaving the hospital and he found that he was having elevated blood pressures. He owen led and spoke with the rn wellness who advised him to increase his beta elio, though he does get some fatigue sometimes related to taking the medication. He states he does have upcoming follow-up with the rn wellness. MD Complaint: chest pain -: hour(s) Onset: during rest Pain Location: left chest, right chest Severity: mild Quality: tightness Consistency: intermittent Improves With: nothing Worsens With: nothing Anginal Symptoms: sense of impending doom Treatments Prior to Arrival: none - Related Data Home Medications Medication Instructions Recorded Confirmed clonazePAM [KlonoPIN] 1 mg PO Q12H 06/12/17 11/06/23 Divalproex [Depakote] 500 mg PO BID 08/09/17 11/06/23 azaTHIOprine [Imuran] 50 mg PO BID 05/11/23 11/06/23 Previous Rx's Medication Instructions Recorded Atorvastatin [Lipitor] 40 mg PO HS #90 tab 06/10/23 Losartan [Cozaar] 50 mg PO DAILY #90 tab 06/10/23 Metoprolol Succinate (ER) [Toprol 50 mg PO DAILY #90 tab 06/10/23 XL] Amiodarone [Cordarone] 400 mg PO BID #100 tab 11/07/23 Apixaban [Eliquis] 5 mg PO BID #180 tab 11/07/23 Clopidogrel [Plavix] 75 mg PO DAILY #90 tab 11/07/23 Allergies Allergy/AdvReac Type Severity Reaction Status Date / Time prednisone AdvReac makes him Verified 12/11/23 17:17 irritable Review of Systems ROS Statement: Those systems with pertinent positive or pertinent negative responses have been documented in the HPI. ROS Other: All systems not noted in ROS Statement are negative. Constitutional: Denies: fever, chills, weakness Eyes: Denies: vision change Respiratory: Denies: cough, dyspnea Cardiovascular: Reports: as per HPI, chest pain. Denies: palpitations, orthopnea, edema, syncope Gastrointestinal: Denies: abdominal pain, nausea, vomiting, diarrhea Genitourinary: Denies: dysuria, hematuria Musculoskeletal: Denies: back pain Skin: Denies: rash Neurological: Denies: headache, weakness, numbness Psychiatric: Reports: anxiety EKG Findings - EKG Comments: EKG Findings:: Possible old inferior infarct based on Q waves in 3 and aVF - EKG Results: EKG: interpreted by ESPINOZA, sinus rhythm, normal axis, normal ST/T EKG shows: bradycardia (Rate 58 bpm) Past Medical History Past Medical History: Chest Pain / Angina, Eye Disorder, GERD/Reflux, Hyperlipidemia, Hypertension, Neurologic Disorder, Seizure Disorder Additional Past Medical History / Comment(s): dizziness, neurosarcoidosis, LAST MAJOR SEIZURE 4-5 YEARS- THINKS HE MIGHT HAVE SEIZURES WHEN HE IS SLEEPING-NOT SURE, small seizures, muscle spasticity, fluid retention left ankle, heartburn "goes into arms", chest tightness, some SOB w/exertion recently History of Any Multi-Drug Resistant Organisms: None Reported Past Surgical History: Heart Catheterization With Stent, Orthopedic Surgery, Tonsillectomy Additional Past Surgical History / Comment(s): BILAT knee, BILAT shoulder, BILAT ankle, pelvic , LT elbow,LT clavicle, BILAT HAND SX, BLAT EYE SX INFANT, LASER SURGERY FOR BILAT DETACHED RETINAS Past Anesthesia/Blood Transfusion Reactions: No Reported Reaction Date of Last Stent Placement:: 06/09/23 Past Psychological History: Anxiety, Depression Smoking Status: Former smoker Past Alcohol Use History: None Reported Past Drug Use History: None Reported - Past Family History Mother History Unknown: Yes Family Medical History: No Reported History Additional Family Medical History / Comment(s): ADOPTED-FAMILY HX UNKNOWN Father Additional Family Medical History / Comment(s): ADOPTED-FAMILY HX UNKNOWN General Exam Limitations: no limitations General appearance: alert, in no apparent distress Head exam: Present: atraumatic, normocephalic Eye exam: Present: normal appearance. Absent: scleral icterus, conjunctival injection Neck exam: Present: normal inspection Respiratory exam: Present: normal lung sounds bilaterally. Absent: respiratory distress, wheezes, rales, rhonchi, stridor, accessory muscle use Cardiovascular Exam: Present: regular rate, normal rhythm, normal heart sounds. Absent: systolic murmur, diastolic murmur, rubs, gallop GI/Abdominal exam: Present: soft. Absent: distended, tenderness, guarding, rebound, rigid, mass Extremities exam: Present: normal inspection, normal capillary refill. Absent: pedal edema, calf tenderness Back exam: Present: normal inspection. Absent: CVA tenderness (R), CVA tenderness (L) Neurological exam: Present: alert Skin exam: Present: warm, dry, intact, normal color. Absent: rash Course Vital Signs 12/11/23 12/11/23 12/11/23 17:07 18:00 19:00 Temperature 97.8 F Pulse Rate 58 L 61 56 L Respiratory 18 13 24 Rate Blood Pressure 176/97 176/97 175/91 O2 Sat by Pulse 98 96 97 Oximetry 12/11/23 12/11/23 20:10 21:43 Temperature Pulse Rate 59 L 60 Respiratory 19 19 Rate Blood Pressure 153/91 146/79 O2 Sat by Pulse 98 98 Oximetry Chest Pain MDM - MDM The patient had chest x-ray which I interpreted as negative for acute infiltrate, pneumothorax, congestive heart failure. Was pt. sent in by a medical professional or institution (, PA, SALES PROMOTION COORDINATOR, urgent care, hospital, or detention...) When possible be specific @ -[No] Did you speak to anyone other than the patient for history (EMS, parent, family, police, friend...)? What history was obtained from this source @ -[Patient's did contribute to history Did you review nursing and triage notes (agree or disagree)? Why? @ -[I reviewed and agree with nursing and triage notes] Were old charts reviewed (outside hosp., previous admission, EMS record, old EKG, old radiological studies, urgent care reports/EKG's, detention records)? Report findings @ -[Yes old charts were reviewed] Differential Diagnosis (chest pain, altered mental status, abdominal pain women, abdominal pain men, vaginal bleeding, weakness, fever, dyspnea, syncope, headache, dizziness, GI bleed, back pain, seizure, CVA, palpatations, mental health, musculoskeletal)? @ -[Amphetamine Toxicity Anxiety Disorders Apnea, Sleep Cocaine-Related Cardiomyopathy Heart Failure Hyperthyroidism, Thyroid Storm, and Graves Disease Hypertrophic Cardiomyopathy Myocardial Infarction Phencyclidine Toxicity Primary Aldosteronism Stroke, Hemorrhagic Stroke, Ischemic EKG interpreted by me (3pts min.). @ -[I interpreted As above] X-rays interpreted by me (1pt min.). @ -[I interpreted as above CT interpreted by me (1pt min.). @ -[None done] U/S interpreted by me (1pt. min.). @ -[None done] What testing was considered but not performed or refused? (CT, X-rays, U/S, labs)? Why? @ -[None] What meds were considered but not given or refused? Why? @ -[None] Did you discuss the management of the patient with other professionals (professionals i.e. , PA, SALES PROMOTION COORDINATOR, lab, RT, psych nurse, nursing home social worker, shelter case manager, teacher, armored vehicle officer, case fitter)? Give summary @ -[No] Was smoking cessation discussed for >3mins.? @ -[No] Was critical care preformed (if so, how long)? @ -[No] Were there social determinants of health that impacted care today? How? (Homelessness, low income, unemployed, alcoholism, drug addiction, transportation, low edu. Level, literacy, decrease access to med. care, nursing home, rehab)? @ -[No] Was there de-escalation of care discussed even if they declined (Discuss DNR or withdrawal of care, Hospice)? DNR status @ -[No] What co-morbidities impacted this encounter? (DM, HTN, Smoking, COPD, CAD, Cancer, CVA, ARF, Chemo, Hep., AIDS, mental health diagnosis, sleep apnea, morbid obesity)? @ -[Hypertension Was patient admitted / discharged? Hospital course, mention meds given and route, prescriptions, significant lab abnormalities, going to OR and other pertinent info. @ -[Patient is 53-year-old man here to have evaluation of hypertension and chest tightness. The exam and workup are unremarkable. He is given additional medication though his blood pressure had started to somewhat decrease shortly after arrival here. The patient's symptoms had resolved. He does have upcoming appointment with cardiology and he is given prescription for additional antihypertensive which she can take on an as-needed basis. Discussed appropriate further care and follow-up as well as return parameters Undiagnosed new problem with uncertain prognosis? @ -[No] Drug Therapy requiring intensive monitoring for toxicity (Heparin, Nitro, Insulin, Cardizem)? @ -[No] Were any procedures done? @ -[No] Diagnosis/symptom? @ -[Acute on chronic hypertension Acute chest pain Acute, or Chronic, or Acute on Chronic? @ -[default] Uncomplicated (without systemic symptoms) or Complicated (systemic symptoms)? @ -[Uncomplicated Side effects of treatment? @ -[No] Exacerbation, Progression, or Severe Exacerbation? @ -[No] Poses a threat to life or bodily function? How? (Chest pain, [place], [place], pneumonia, PE, COPD, DKA, ARF, appy, cholecystitis, CVA, Diverticulitis, Homicidal, Suicidal, threat to staff... and all critical care pts) @ -[There is threat to life of these conditions are not properly manage, therefore patient has close follow-up with cardiology and return parameters outlined Disposition Clinical Impression: Hypertension Disposition: HOME SELF-CARE Condition: Good Instructions (If sedation given, give patient instructions): Hypertension (ED) Is patient prescribed a controlled substance at d/c from ED?: No Referrals: Lexii Loomis DO [Primary Care Provider] - 1-2 days
[2023-12-11 17:38] VITALS: TEMP 97.8
[2023-12-11] MEDS ORDERED: ASPIRIN 81 MG PO STA (17:48)
[2023-12-11 18:23] LABS: Basophils # (A) 0.1 k/uL (0-0.2); Basophils % (A) 1 %; Eosinophils # (A) 0.1 k/uL (0-0.7); Eosinophils % (A) 2 %; HCT 41.6 % (39.0-53.0); HGB 14.4 gm/dL (13.0-17.5); Lymphocytes # (A) 1.4 k/uL (1.0-4.8); Lymphocytes % (A) 26 %; MCH 33.1 pg (25.0-35.0); MCHC 34.5 g/dL (31.0-37.0); MCV 95.7 fL (80.0-100.0); Mean Platelet Volume 7.8; Monocytes # (A) 0.3 k/uL (0-1.0); Monocytes % (A) 6 %; Neutrophils # (A) 3.4 k/uL (1.3-7.7); Neutrophils % (A) 62 %; Platelet Count 153 k/uL (150-450); RBC 4.35 m/uL (4.30-5.90); RDW 12.2 % (11.5-15.5); WBC 5.5 k/uL (3.8-10.6)
[2023-12-11 18:32] LABS: ALT 38 U/L (4-49); AST 27 U/L (17-59); African American GFR (CKD) >90 (>60 ml/min/1.73 sqM); Albumin 4.2 g/dL (3.5-5.0); Alkaline Phosphatase 82 U/L (38-126); Anion Gap 8 mmol/L; Blood Urea Nitrogen 11 mg/dL (9-20); Calcium 9.2 mg/dL (8.4-10.2); Carbon Dioxide 26 mmol/L (22-30); Chloride 106 mmol/L (98-107); Glucose 106 mg/dL (74-99); Magnesium 2.3 mg/dL (1.6-2.3); Non-African American GFR(CKD) >90 (>60 ml/min/1.73 sqM); Potassium 4.7 mmol/L (3.5-5.1); Sodium 140 mmol/L (137-145); Total Bilirubin 0.4 mg/dL (0.2-1.3); Total Protein 7.2 g/dL (6.3-8.2)
[2023-12-11 18:37] LABS: INR 0.9 (<1.2); Partial Thromboplastin Time 24.2 sec (22.0-30.0); Prothrombin Time 10.5 sec (10.0-12.5)
[2023-12-11 18:41] LABS: NT-Pro-B-Type Natriuretic Pept 204 pg/mL
[2023-12-11] MEDS ORDERED: lisinopriL 10 MG TAB PO STA (19:06)
[2023-12-11 20:18] VITALS: RESP 19
[2023-12-11 21:58] VITALS: BP 146/79; PULSE 60
--- NOTE | 2023-12-11 22:00 | XR ---
EXAMINATION TYPE: XR chest 2V DATE OF EXAM: 12/11/2023 6:09 PM CLINICAL INDICATION:Male, 53 years old with history of Chest Pain; [facility] COMPARISON: 12/03/2023 TECHNIQUE: XR chest 2V. Frontal and lateral views of the chest.. FINDINGS: Lines/Tubes/Devices: EKG leads overlie the chest. No indwelling lines are seen. Heart/mediastinum: Heart size upper normal. Mediastinum appears within normal limits. Pulmonary vascularity: Not increased, Lungs/Pleura: There is no evidence of pleural effusion, focal consolidation, or pneumothorax. Lungs again appear hyperinflated with interstitial coarsening, findings suggestive of COPD/emphysema. Musculoskeletal: No acute osseous abnormality demonstrated in the limits of the exam. Other findings: None. IMPRESSION: No acute cardiopulmonary abnormality. No significant change.
== END 2023-12-11 22:03 | disposition home or self-care (01) ==
LOC: EC 17:02
DX: I10 Essential (primary) hypertension (principal); Z87.891 Personal history of nicotine dependence; Z86.59 Personal history of other mental and behavioral disorders; Z88.8 Allergy status to other drugs, medicaments and biological substances
CPT/HCPCS: 36415; 71046; 80053; 83735; 83880; 84484; 85025; 85379; 85610; 85730; 93005; 99285

== ENCOUNTER 2024-09-18 06:25 | Emergency (ER) | payer BC, MEDICARE ==
[2024-09-18 07:21] LABS: Basophils % (A) 1 %; Eosinophils # (A) 0.1 k/uL (0-0.7); Eosinophils % (A) 1 %; HCT 44.8 % (39.0-53.0); HGB 15.2 gm/dL (13.0-17.5); Lymphocytes # (A) 1.1 k/uL (1.0-4.8); Lymphocytes % (A) 21 %; MCH 32.7 pg (25.0-35.0); MCV 96.2 fL (80.0-100.0); Mean Platelet Volume 7.3; Monocytes # (A) 0.3 k/uL (0-1.0); Monocytes % (A) 6 %; Neutrophils # (A) 3.5 k/uL (1.3-7.7); Neutrophils % (A) 69 %; Platelet Count 170 k/uL (150-450); RBC 4.66 m/uL (4.30-5.90); RDW 12.4 % (11.5-15.5); WBC 5.1 k/uL (3.8-10.6)
--- NOTE | 2024-09-18 07:23 | ED ---
Chest Pain HPI - General Chief Complaint: Chest Pain Stated Complaint: Chest pain Time Seen by Provider: 09/18/24 06:35 Source: patient, RN notes reviewed Mode of arrival: ambulatory Limitations: no limitations - History of Present Illness Initial Comments: 54-year-old male presents emergency department complaint of right shoulder pain. Patient states started around midnight. Patient states it hurts to move his right shoulder but states that he has extensive cardiac history so he became concerned. Patient states that pain does radiate when he moves his right shoulder he states he does not feel short of breath currently. Denies any left- sided chest pain no left arm pain did have some pain about his neck which is now resolved. Patient states she has had prior cardiac stents, angioplasty along with second procedure performed by a second mold making plastics sheets supervisor. Patient does take Eliquis, Plavix and has a history of hyperlipidemia and hypertension - Related Data Home Medications Medication Instructions Recorded Confirmed clonazePAM [KlonoPIN] 1 mg PO Q12H 06/12/17 11/06/23 Divalproex [Depakote] 500 mg PO BID 08/09/17 11/06/23 azaTHIOprine [Imuran] 50 mg PO BID 05/11/23 11/06/23 Previous Rx's Medication Instructions Recorded Atorvastatin [Lipitor] 40 mg PO HS #90 tab 06/10/23 Losartan [Cozaar] 50 mg PO DAILY #90 tab 06/10/23 Metoprolol Succinate (ER) [Toprol 50 mg PO DAILY #90 tab 06/10/23 XL] Amiodarone [Cordarone] 400 mg PO BID #100 tab 11/07/23 Apixaban [Eliquis] 5 mg PO BID #180 tab 11/07/23 Clopidogrel [Plavix] 75 mg PO DAILY #90 tab 11/07/23 Allergies Allergy/AdvReac Type Severity Reaction Status Date / Time prednisone AdvReac makes him Verified 09/18/24 06:36 irritable Review of Systems ROS Statement: Those systems with pertinent positive or pertinent negative responses have been documented in the HPI. ROS Other: All systems not noted in ROS Statement are negative. EKG Findings - EKG Comments: EKG Findings:: EKG performed at 6: 42 sinus rhythm rate of 68 DC 177 QRS 100 QT/QTc 375/392 - EKG Results: EKG: interpreted by ESPINOZA Past Medical History Past Medical History: Chest Pain / Angina, Eye Disorder, GERD/Reflux, Hyperlipidemia, Hypertension, Neurologic Disorder, Seizure Disorder Additional Past Medical History / Comment(s): dizziness, neurosarcoidosis, LAST MAJOR SEIZURE 4-5 YEARS- THINKS HE MIGHT HAVE SEIZURES WHEN HE IS SLEEPING-NOT SURE, small seizures, muscle spasticity, fluid retention left ankle, heartburn "goes into arms", chest tightness, some SOB w/exertion recently History of Any Multi-Drug Resistant Organisms: None Reported Past Surgical History: Heart Catheterization With Stent, Orthopedic Surgery, Tonsillectomy Additional Past Surgical History / Comment(s): BILAT knee, BILAT shoulder, BILAT ankle, pelvic , LT elbow,LT clavicle, BILAT HAND SX, BLAT EYE SX INFANT, LASER SURGERY FOR BILAT DETACHED RETINAS, Bypass surgery [facility]. Past Anesthesia/Blood Transfusion Reactions: No Reported Reaction Date of Last Stent Placement:: 06/09/23 Past Psychological History: Anxiety, Depression Smoking Status: Former smoker Past Alcohol Use History: None Reported Past Drug Use History: None Reported - Past Family History Mother History Unknown: Yes Family Medical History: No Reported History Additional Family Medical History / Comment(s): ADOPTED-FAMILY HX UNKNOWN Father Additional Family Medical History / Comment(s): ADOPTED-FAMILY HX UNKNOWN General Exam Limitations: no limitations General appearance: alert, in no apparent distress Head exam: Present: atraumatic, normocephalic, normal inspection Eye exam: Present: normal appearance, PERRL, EOMI. Absent: scleral icterus, conjunctival injection, periorbital swelling ENT exam: Present: normal exam, normal oropharynx, mucous membranes moist Neck exam: Present: normal inspection, full ROM. Absent: tenderness, meningismus, lymphadenopathy Respiratory exam: Present: normal lung sounds bilaterally. Absent: respiratory distress, wheezes, rales, rhonchi, stridor Cardiovascular Exam: Present: regular rate, normal rhythm, normal heart sounds. Absent: systolic murmur, diastolic murmur, rubs, gallop, clicks Extremities exam: Present: other (Motion right shoulder, tenderness to the right bicipital tendon region) Neurological exam: Present: alert, oriented X3, CN II-XII intact, reflexes normal. Absent: motor sensory deficit Skin exam: Present: warm, dry, intact, normal color. Absent: rash Course Vital Signs 09/18/24 09/18/24 09/18/24 06:32 07:13 08:15 Temperature 97.4 F L Pulse Rate 68 58 L 61 Respiratory 18 18 18 Rate Blood Pressure 185/90 162/92 172/90 O2 Sat by Pulse 100 96 Oximetry 09/18/24 09/18/24 09:12 11:25 Temperature 98.4 F Pulse Rate 57 L 66 Respiratory 16 18 Rate Blood Pressure 141/75 144/86 O2 Sat by Pulse 97 Oximetry Chest Pain MDM - MDM Was pt. sent in by a medical professional or institution (, PA, MELTING SUPERVISOR, urgent care, hospital, or [facility]...) When possible be specific @ -[No] Did you speak to anyone other than the patient for history (EMS, parent, family, police, friend...)? What history was obtained from this source @ -[No] Did you review nursing and triage notes (agree or disagree)? Why? @ -[I reviewed and agree with nursing and triage notes] Were old charts reviewed (outside hosp., previous admission, EMS record, old EKG, old radiological studies, urgent care reports/EKG's, [facility] records)? Report findings @ -Reviewed prior EKGs Differential Diagnosis (chest pain, altered mental status, abdominal pain women, abdominal pain men, vaginal bleeding, weakness, fever, dyspnea, syncope, headache, dizziness, GI bleed, back pain, seizure, CVA, palpatations, mental health, musculoskeletal)? @ -Differential Chest Pain: Stable Angina, Unstable Angina, STEMI, NSTEMI Aortic Dissection, Pneumothorax, Musculoskeletal, Esophageal Spasm GERD, Cholecystitis, Pancreatitis, Zoster, this is not meant to be an all-inclusive list. EKG interpreted by me (3pts min.). @ -[As above] X-rays interpreted by me (1pt min.). @ -Chest x-ray shows no acute cardiopulmonary process CT interpreted by me (1pt min.). @ -[None done] U/S interpreted by me (1pt. min.). @ -None done What testing was considered but not performed or refused? (CT, X-rays, U/S, labs)? Why? @ -None What meds were considered but not given or refused? Why? @ -None Did you discuss the management of the patient with other professionals (virginia brasher i.eBarbi Campbell, PA, MELTING SUPERVISOR, lab, RT, psych nurse, social group worker, pricing associate, teacher, national service officer, case mgr)? Give summary @ -No Was smoking cessation discussed for >3mins.? @ -No Was critical care preformed (if so, how long)? @ -No Were there social determinants of health that impacted care today? How? (Homelessness, low income, unemployed, alcoholism, drug addiction, transportation, low edu. Level, literacy, decrease access to med. care, [facility], rehab)? @ -No Was there de-escalation of care discussed even if they declined (Discuss DNR or withdrawal of care, Hospice)? DNR status @ -No What co-morbidities impacted this encounter? (DM, HTN, Smoking, COPD, CAD, Cancer, CVA, ARF, Chemo, Hep., AIDS, mental health diagnosis, sleep apnea, morbid obesity)? @ -[CAD Was patient admitted / discharged? Hospital course, mention meds given and route, prescriptions, significant lab abnormalities, going to OR and other pertinent info. @ -Discharge patient had reproducible right shoulder pain patient presented with concerns as he has significant cardiac history he had no chest pain at this time patient did have relief of symptoms. Patient had troponin x 2 which was negative patient states he feels comfortable discharge versus admission. Undiagnosed new problem with uncertain prognosis? @ -No Drug Therapy requiring intensive monitoring for toxicity (Heparin, Nitro, Insulin, Cardizem)? @ -No Were any procedures done? @ -No Diagnosis/symptom? @ -Right shoulder pain Acute, or Chronic, or Acute on Chronic? @ -Acute Uncomplicated (without systemic symptoms) or Complicated (systemic symptoms)? @ -Uncomplicated Side effects of treatment? @ -No Exacerbation, Progression, or Severe Exacerbation? @ -No Poses a threat to life or bodily function? How? (Chest pain, [place], [place], pneumonia, PE, COPD, DKA, ARF, appy, cholecystitis, CVA, Diverticulitis, Homicidal, Suicidal, threat to staff... and all critical care pts) @ -No Disposition Clinical Impression: Right shoulder pain Disposition: HOME SELF-CARE Condition: Stable Instructions (If sedation given, give patient instructions): Shoulder Pain (ED) Additional Instructions: Please return to the Emergency Department if symptoms worsen or any other concerns. Is patient prescribed a controlled substance at d/c from ED?: No Referrals: Dasha Osborn NPC [REFERRING] - 1-2 days Time of Disposition: 10:39
[2024-09-18 07:33] LABS: Partial Thromboplastin Time 28.1 sec (22.0-30.0); Prothrombin Time 11.1 sec (10.0-12.5)
--- NOTE | 2024-09-18 07:35 | XR ---
EXAMINATION TYPE: XR chest 2V DATE OF EXAM: 09/18/2024 COMPARISON: 12/11/2023 HISTORY: 54-year-old male with chest pain TECHNIQUE: PA and lateral views FINDINGS: The heart is borderline in size. Mild hyperinflation. Mild interstitial density has a chronic appeara nce. Some chronic appearing pleural thickening along the periphery of the left lower lung is unchange d. No cristina consolidation or pleural effusion. IMPRESSION: Chronic changes including borderline cardiomegaly and possible underlying COPD. No acute process seen . [facility], , 09/18/2024 7:32 AM
[2024-09-18 07:36] LABS: ALT 65 U/L (4-49); AST 40 U/L (17-59); African American GFR (CKD) >90 (>60 ml/min/1.73 sqM); Albumin 4.8 g/dL (3.5-5.0); Alkaline Phosphatase 71 U/L (38-126); Anion Gap 10 mmol/L; Blood Urea Nitrogen 8 mg/dL (9-20); Calcium 9.3 mg/dL (8.4-10.2); Carbon Dioxide 25 mmol/L (22-30); Chloride 100 mmol/L (98-107); Glucose 111 mg/dL (74-99); Non-African American GFR(CKD) >90 (>60 ml/min/1.73 sqM); Potassium 5.3 mmol/L (3.5-5.1); Sodium 135 mmol/L (137-145); Total Bilirubin 0.6 mg/dL (0.2-1.3); Total Protein 7.7 g/dL (6.3-8.2)
[2024-09-18] MEDS: ONDANSETRON 4 MG/2 ML VIAL IVP STA (08:23)
[2024-09-18] MEDS: MORPHINE SULFATE 4 MG/ML SYRINGE IVP STA (08:26)
[2024-09-18] MEDS: ACET/COD 300 MG/30 MG STARTER PACK 6 TAB BTL PO STA (11:24)
[2024-09-18 11:28] VITALS: BP 144/86; PULSE 66; RESP 18; TEMP 98.4
== END 2024-09-18 11:37 | disposition home or self-care (01) ==
LOC: EC 06:25
CPT/HCPCS: 36415; 71046; 80053; 83735; 84484; 85025; 85610; 85730; 93005; 96374; 96375; 99285